=== PATIENT | female | born 2000 | race Caucasian/White ===

== ENCOUNTER 2018-12-06 17:32 | Emergency (ER) | payer BC ==
[~2018-12-06] VITALS: Wt 65.0 kg
--- NOTE | 2018-12-06 19:19 | ERD ---
ER Documentation Chief Complaint Chief Complaint POSSIBLE ALLERGIC REACTION AFTER EATING EGG YESTERDAY HPI This is a 18-year-old female who presents to the emergency room with complaint of 3 distinct welts on forearm after being at a dinner yesterday. She felt nauseated after eating eggs. Denies fevers, no wheezing, no shortness of breath. Denies chronic medical history. ROS All systems reviewed and are negative except as per history of present illness. Medications Home Meds Active Scripts Ranitidine Hcl* (Zantac*) 150 Mg Tablet, 150 MG PO BID PRN for EPIGASTRIC PAIN for 5 Days, #10 TAB Prov:LILIAN HILLMAN NP 12/06/18 Sulfamethoxazole/Trimethoprim* (Bactrim Ds* Tablet) 1 Each Tablet, 1 TAB PO BID for skin infectin for 3 Days, #6 TAB Prov:LILIAN HILLMAN NP 12/06/18 Prednisone* (Prednisone*) 20 Mg Tab, 40 MG PO DAILY for 3 Days, TAB Prov:LILIAN HILLMAN NP 12/06/18 Cetirizine Hcl* (Zyrtec*) 10 Mg Capsule, 10 MG PO DAILY for allergic reaction for 5 Days, #5 TAB.CHEW Prov:LILIAN HILLMAN NP 12/06/18 Allergies Allergies: Coded Allergies: Penicillins (Verified Allergy, Unknown, 12/06/18) PMhx/Soc Medical and Surgical Hx: pt denies Medical Hx, pt denies Surgical Hx Hx Alcohol Use: No Hx Substance Use: No Hx Tobacco Use: No Smoking Status: Never smoker FmHx Family History: No diabetes, No coronary disease, No other Physical Exam Vitals Vital Signs Date Temp Pulse Resp B/P (MAP) Pulse Ox O2 O2 Flow FiO2 Time Delivery Rate 12/06/18 98.3 78 16 124/71 99 Room Air 20:28 (88) 12/06/18 98.1 69 18 131/71 99 17:34 (91) Physical Exam Const: No acute distress Head: Atraumatic Eyes: Normal Conjunctiva, PERRL ENT: Normal External Ears, Nose and Mouth. Neck: Full range of motion. No meningismus. Resp: Clear to auscultation bilaterally, no wheezing, no stridor Cardio: Regular rate and rhythm, no murmurs Abd: Soft, non tender, non distended. Normal bowel sounds Skin: No petechiae, no bruising, large wheel with erythema and central fluid filled vesicle +swelling, to left hand, right elbow, right lateral face, +excoriation to all due to scratching Back: No midline or flank tenderness Ext: No cyanosis, or edema Neur: Awake and alert Psych: Normal Mood and Affect Results 24 hrs Current Medications Medications Dose Sig/Joanna Start Time Status Last (Trade) Ordered Route PRN Stop Time Admin Dose Reason Admin Famotidine 20 mg ONCE ONCE 12/06/18 DC 12/06/18 (Pepcid) PO 19:30 19:20 12/06/18 19:31 1 tab ONCE ONCE 12/06/18 DC 12/06/18 Trimethoprim/ PO 19:30 19:21 12/06/18 19:31 Sulfamethoxaz ole (Bactrim (Ds)) Prednisone 40 mg ONCE ONCE 12/06/18 DC 12/06/18 (Prednisone) PO 19:30 19:20 12/06/18 19:31 Procedures/MDM This is a 18-year-old female who presents to the emergency room with 3 distinct areas of urticaria. ED COURSE: The patient was stable throughout ED course. I kept the patient and/or family informed of laboratory and diagnostic imaging results throughout the ED course. MEDICATIONS GIVEN: Famotidine, prednisone, bactrim DS. Patient took Benadryl [employer]. MDM: Patient remained stable during ED course, no wheezing, no stridor, no drooling, no impending airway concerns. No increase in rash. Itching controlled with medications. Insect bite versus egg allergy. This patient reports having allergic reaction which has become infected with scratching and opening of welts. This patients soft tissue infection appears to be appropriate for outpatient treatment with close follow-up for reevaluation by a clinician within 24-48 hours. A serious, rapidly progressive infectious process is unlikely based upon the patients presentation and appearance of the infection. Antibiotic treatment has been ini tiated here and response to treatment will be based on reassessment at close follow-up. The patient has been instructed on signs and symptoms of acute progression of infection and to return immediately if any of these occur. DISPOSITION: The patient has been discharge home to follow-up with community physician. Departure Diagnosis: Primary Impression: Cellulitis Condition: Stable Patient Instructions: Cellulitis Referrals: [facility] Additional Instructions: Thank you very much for allowing us to participate in your care. Your health and safety is our top priority at [facility]. Call your primary care doctor TOMORROW for an appointment during the next 2-4 days and bring all the information and medications prescribed. Have prescriptions filled and follow precisely the directions on the label. If the symptoms get worse and your provider is unavailable, return to the Emergency Department immediately. Take medications as prescribed. Home self-care to include cool soaks, oatmeal bath, topical solutions such as Caladryl, hydrocortisone, and benadryl. Return to ER with wheezing, shortness of breath, fever. Follow-up with primary provider in 2-3 days for reevaluation and referral for allergy testing. . DISPOSITION: Home to follow-up with primary care provider. LILIAN HILLMAN NP Dec 06, 2018 19:19
[2018-12-06] MEDS ORDERED: SULF1TAB31 PO (19:21)
[2018-12-06] MEDS ORDERED: PRED20TA PO (19:21)
[2018-12-06] MEDS ORDERED: CETI10CA PO (19:21)
[2018-12-06] MEDS ORDERED: RANI150T35 PO (19:21)
[2018-12-06] MEDS ORDERED: FAMOTIDINE 20 MG TAB PO ONE (19:30)
[2018-12-06] MEDS ORDERED: TRIMETHOPRIM/SULFAMETHOX (DS) TAB PO ONE (19:30)
[2018-12-06] MEDS ORDERED: predniSONE 20 MG TAB PO ONE (19:30)
[2018-12-06 20:28] VITALS: BP 124/71; PULSE 78; RESP 16
== END 2018-12-06 20:29 | disposition home or self-care (01) ==
LOC: FTE 17:32
DX: L03.114 Cellulitis of left upper limb (principal); L03.211 Cellulitis of face
CPT/HCPCS: J7512; Z7502; Z7610; 99283